=== PATIENT | female | born 1990 | race Caucasian/White ===

== ENCOUNTER 2020-11-24 11:31 | Outpatient (CLI) | payer OTHER, SELFPAY ==
--- NOTE | ~2020-11-24 | XR_ITS ---
EXAMINATION: XR sm joint inject/asp w image DATE: 11/24/2020 12:22 INDICATION: Osteoarthritis of right first tarsometatarsal joint. TECHNIQUE: A time-out was performed to verify the patient's name, date of , and procedure to b e performed. The procedure including the risks, benefits, and alternatives was discussed with the pat ient. Risks discussed included bleeding and infection. The patient understood the risks and agreed to proceed. The skin overlying the right first tarsometatarsal joint was prepped and draped in usual s terile fashion. Anesthetic was administered with 1% lidocaine subcutaneously. A 23 G needle was adv anced under fluoroscopic guidance into the joint. Subsequently, injectate consisting of 1 mL 40 mg/m L Kenalog was instilled. The needle was removed and the entry site was cleaned and dressed. There w ere no immediate complications. Fluoroscopy exposure time was 0.1 minutes. The total number of images was 1. FINDINGS: Real-time fluoroscopy demonstrates the needle in the right first tarsometatarsal joint. IMPRESSION: 1. Right first tarsometatarsal joint injection of local anesthetic and steroid. Reviewed, dictated and finalized at location A.
== END 2020-11-24 11:32 | disposition home or self-care (01) ==
PROVIDERS: PCP Family Medicine; Visit Provider Podiatrist Foot & Ankle Surgery
DX: M19.071 Primary osteoarthritis, right ankle and foot (principal)
CPT/HCPCS: 20600; 77002; J3301